=== PATIENT | male | born 1940 | race Caucasian/White ===

== ENCOUNTER → 2023-11-08 13:27 | Outpatient (REF) | payer MEDICARE, OTHER, SELFPAY | LOC: RAD 13:27 | PROVIDERS: ATTENDING PHYSICIAN Podiatrist Foot & Ankle Surgery; FAMILY PHYSICIAN Internal Medicine | DX: I99.8 Other disorder of circulatory system (principal) | CPT/HCPCS: 93922 ==

== ENCOUNTER → 2024-03-24 12:03 | Outpatient (REF) | payer MEDICARE, OTHER, SELFPAY | LOC: DHSLP 12:03 | PROVIDERS: ATTENDING PHYSICIAN Internal Medicine Critical Care Medicine; FAMILY PHYSICIAN Internal Medicine | DX: G47.33 Obstructive sleep apnea (adult) (pediatric) (principal) | CPT/HCPCS: 95800 ==

== ENCOUNTER 2024-04-28 14:17 | Inpatient (IN) | payer MEDICARE, OTHER, SELFPAY ==
[2024-04-28] VITALS (8 sets, daily range): BP systolic 108–140; BP diastolic 63–80; BMI 24.0
--- NOTE | 2024-04-28 11:21 | ED.GENMED ---
Addendum entered and electronically signed by Bebeto Urbina MD 04/28/24 14:06:
EKG read by myself. Ventricular paced rhythm with occasional PVCs. No other abnormalities. No previous EKGs
Monitor paced rhythm at a rate of 74.
Original Note:
History of Present Illness
General
Chief Complaint: Fever
Source: patient and spouse
Exam Limitations: none
Time Seen by Provider: 04/28/24 11:09
History of Present Illness
History of Present Illness:
84-year-old male complaining of cough some headache myalgias. Started 1 to 2 days ago. Initially he thought he might be going into heart failure. However had a positive home COVID test this morning. Mild shortness of breath. Minimal nausea. No
abdominal pain no vomiting no urinary symptoms.
Past History
Past History
ED Past Medical History: Other (amyloidosis, neuropathy)
ED Past Surgical History: Appendectomy, Cardiac (Mitral valve repair/cardiac ablation), Orthopedic and Other (Hernia repair)
Social History
Tobacco: Non-smoker
Drug: None
Personal:
Living: with family
Phy Exam
Physical Exam
Physical Exam:
GENERAL: Alert and oriented in no apparent distress
EYE: Orbits normal.
NECK: Supple
CARDIAC: Regular rate and rhythm without any obvious murmurs. Pacemaker left upper chest wall
LUNGS: No respiratory distress. Occasional slightly coarse cough. No wheezing or rhonchi
ABDOMEN: Soft, without focal tenderness or distention
NEUROLOGICAL: Alert and oriented , grossly non-focal
SKIN: Warm and dry, no rash or lesion, no discoloration, skin intact.
MUSCULOSKELETAL: No edema,no deformity.Good color
PSYCH: Normal and appropriate interaction.
Course
Orders/Labs/Results
Orders:
Orders
04/28/24 11:20
Electrocardiogram (*1) Stat
Reason for Study: Other
Other Reason for Exam: pneumonia
Cardiac Monitoring- Treatment ONCE
EKG- Treatment ONCE
IV Insert/Care/Rem.- Treatment PRN
CR Chest Portable - 1 View Urgent
Comment:
Reason For Exam: Cough/positive COVID
Reason Study Needs to be Portable: Other
Pulse Ox/cont/shift [RESP] Stat
Quantity: 1
04/28/24 11:46
Basic Metabolic Panel Urgent
COVID-19 Antigen Urgent
Source: Nasal Swab
Complete Blood Count/With Diff Urgent
NT-proBNP Urgent
Comment: ADD ON
04/28/24 12:06
Add On- LAB Urgent
Tests Added?: probnp
Abnormal Lab Results
04/28/24
11:46
WBC 12.0 H 10^3/uL
(4.8-10.8)
MCHC 32.8 L g/dL
(33.0-37.0)
RDW 15.9 H %
(11.5-14.5)
Plt Count 102 L 10^3/uL
(130-400)
MPV 10.8 H fL
(7.4-10.4)
Absolute Neuts (auto) 10.2 H 10^3/uL
(1.4-6.5)
Absolute Lymphs (auto) 0.6 L 10^3/uL
(1.2-3.4)
Absolute Monos (auto) 1.1 H 10^3/uL
(0.1-0.6)
Neutrophils % 85.4 H %
(42.2-75.2)
Lymphocytes % 4.7 L %
(20.5-51.1)
BUN 22 H mg/dl
(9-20)
Glucose 110 H mg/dl
(70-99)
SARS-CoV-2 Antigen Positive A
(Negative)
04/28/24 11:46
04/28/24 11:46
Vital Signs
Initial and Last Documented VS:
Initial Vital Signs
Temp Pulse Resp BP Pulse Ox
100.8 F H 83 18 121/71 92
04/28/24 10:48 04/28/24 10:48 04/28/24 10:48 04/28/24 10:48 04/28/24 10:48
Last Documented Vital Signs
Temp Pulse Resp BP Pulse Ox
99.8 F 71 23 108/74 96
04/28/24 12:00 04/28/24 13:00 04/28/24 13:00 04/28/24 13:00 04/28/24 13:07
MDM/Problems Addressed
Differential Diagnosis Includes:
Patient with cough congestion low-grade fever positive COVID test at home. Likely all related to COVID. Evaluation will include labs chest x-ray and EKG. Ultimately management will be decision on antivirals. Patient did not tolerate Paxlovid
last year due to diarrhea. Patient has had previous COVID vaccines except for the most recent 1
*Critical Care Note
Total Time (30-74mins, 75-104mins- exclusive of procedures): Not Applicable
ED Attending Note
-
Portions of this chart may have been created with voice recognition software.� Occasional wrong word or��sound alike� substitutions may have occurred due to the inherent limitations of voice recognition software.
Discharge Plan
Departure
Patient Disposition: Admit
Date of Disposition: 04/28/24
Time of Disposition: 13:18
Presentation/result/management discussed w/ accepting MD/DO: Hospitalist
Discharge Problem:
COVID-19, Pneumonitis/hypoxia, Amyloid cardiac disease
Referrals:
UNKNOWN,NO INTERVIEW [Unknown Provider] -
Interventions
Interventions:
*Risk Screen - Suicide Last Done: 04/28/24 10:48
*General Assessment Last Done: 04/28/24 10:48
*Neglect/Abuse Screening Last Done: 04/28/24 10:48
ED- Fall Risk Assessment Last Done: 04/28/24 11:43
*ED COVID-19 Vaccine History Last Done: 04/28/24 10:52
ED- Neurological Assessment Last Done: 04/28/24 11:50
ED-Skin Assessment Last Done: 04/28/24 11:50
Discharge Date and Time
Print Language: CITIZ[place]
--- NOTE | 2024-04-28 12:00 | EDRN ---
POX 90-92% on RA at this time. Dr. Urbina said to hold on oxygen. Pt also has a PM and Dr. Urbina said interrogation not necessary at this time.
--- NOTE | 2024-04-28 12:11 | EDRN ---
Pulse ox dropped t0 88-90% w/ oxygen started at 2lpm via NC per Dr. Urbina at this time.
[2024-04-28 12:15] LABS: COVID-19 Antigen Positive (Negative)
--- NOTE | 2024-04-28 12:16 | EDRN ---
Pulse ox was 87-89% at this time so oxygen w/ increased to 3lpm although pt was not breathing through his nose. Pt reminded to breathe through his nose to get the oxygen.
[2024-04-28 12:18] LABS: % Basophils 0.5 % (0-2); % Eosinophils 0.1 % (0-6); % Immature Granulocytes 0.3 % (0-0.5); % Lymphocytes 4.7 % (20.5-51.1); % Neutrophils 85.4 % (42.2-75.2); Absolute Basophils 0.1 10^3/uL (0-0.2); Absolute Lymphocytes 0.6 10^3/uL (1.2-3.4); Absolute Monocytes 1.1 10^3/uL (0.1-0.6); Absolute Neutrophils 10.2 10^3/uL (1.4-6.5); Blood Urea Nitrogen 22 mg/dl (9-20); Calcium 9.1 mg/dl (8.4-10.2); Carbon Dioxide 28 mmol/L (22-30); Chloride 99 mmol/L (98-107); Glucose 110 mg/dl (70-99); Hematocrit 44.5 % (39.0-52.0); Hemoglobin 14.6 g/dL (13.0-18.0); Mean Corp Hgb Conc. 32.8 g/dL (33.0-37.0); Mean Corpuscular Volume 91.6 fL (80.0-94.0); Mean Platelet Volume 10.8 fL (7.4-10.4); Nucleated Red Blood Cells % 0 % (-); Platelet Count 102 10^3/uL (130-400); Potassium 4.4 mmol/L (3.5-5.1); Red Blood Cell Count 4.86 10^6/uL (4.70-6.10); Red Cell Dist. Width 15.9 % (11.5-14.5); Sodium 137 mmol/L (135-145); eGFR > 60.00
[2024-04-28 12:33] LABS: NT-proBNP 1710 pg/ml
--- NOTE | 2024-04-28 13:36 | HPS.HSE ---
Addendum entered and electronically signed by Dwayne Kirkpatrick MD 04/28/24 14:19:
84-year-old male with past medical history of permanent atrial fibrillation on Eliquis, cardiac amyloidosis, CHF, and hypertension presents with 2 days of shortness of breath, cough, fever, congestion, and myalgias. Patient is COVID-positive. He
denies sick contacts. He is vaccinated. He was hypoxic in the ER, satting 89% on room air. He is now satting 96% on 2 L.
Will treat with IV dexamethasone, molnupiravir, supportive care.
Check procalcitonin in the a.m., CRP, ferritin, c/s PT/OT.
I have personally seen and examined the patient, and agree with the plan of care as documented by SONG Fischer.
Advance care planning discussed, patient is a full code.
All other issues as outlined by the advanced care practitioner.
Total time spent to see the patient on the floor, examine the patient, review data and lab results, discuss treatment plan with patient, nursing staff around 76 minutes.
Original Note:
Family Physician
-
Family Physician: Bulmaro Espinosa
Chief Complaint
-
cough
congestion
fever
History of Present Illness
84-year-old with past medical history for cardiac amyloid, neuropathy presented to us with nonproductive cough, congestion, fever, generalized achiness for past 2 days. Patient had a fever of 100.2 at home yesterday. He was bedridden yesterday due
to generalized body achiness. Patient stated short of breath, which is worse with exertion. He was positive for COVID this morning. Patient complaining of headache, denied any dizziness or syncopal episode. Denied chest pain. Patient denied
abdominal pain, nausea, vomiting, diarrhea. Patient denies dysuria hematuria.
Tested positive for COVID-19 in the ER. Patient also requiring supplemental oxygen. Admitting for further management
Medical History
Past Medical History
Past Medical History: Reports Other
Additional Past Medical History:
Chronic heart failure
Cardiac amyloidosis
Permanent A-fib
Hypertension
Past Surgical History: Reports Other
Additional Past Surgical History:
Cardiac ablation
Cardiac pacemaker
history of mitral valve repair
Social History
Tobacco: Former Smoker
Alcohol: None
Drug: None
Personal:
Living: With Family
Family History
Family History: Not pertinent
Allergies / Home Medications
Allergies reflects when Allergies were last updated in [employer].
Home Medications with original date entered in [employer]
Allergy/Medication List:
Allergies
Allergy/AdvReac Type Severity Reaction Status Date / Time
amiodarone Allergy Severe Rash Verified 04/28/24 10:47
Home Medications
acetaminophen 500 mg tablet (Tylenol Extra Strength) 1,000 mg PO Q6HPRN PRN mild pain 04/28/24
apixaban 5 mg tablet (Eliquis) 5 mg PO BID 04/28/24
bumetanide 0.5 mg tablet 0.5 - 1 mg PO DAILY 04/28/24
cetirizine 10 mg tablet (Zyrtec) 10 mg PO DAILY 04/28/24
fluticasone propionate 50 mcg/actuation nasal spray,suspension 2 spray intranasal DAILY 04/28/24
gabapentin 300 mg capsule 600 mg PO HS 04/28/24
lorazepam 1 mg tablet 1 mg PO Q6HPRN PRN anxiety 04/28/24
pantoprazole 40 mg tablet,delayed release 40 mg PO DAILY 04/28/24
tafamidis 61 mg capsule (Vyndamax) 61 mg PO HS 04/28/24
Review of Systems
-
Constitutional: Reports No Symptoms, Fatigue and Chills
EENT: Reports Runny Nose
Respiratory: Reports Cough and Trouble Breathing
Cardiac: Reports No Symptoms
Abdomen/GI: Reports No Symptoms
: Reports No Symptoms
Musculoskeletal: Reports No Symptoms
Skin: Reports No Symptoms
Neurological: Reports No Symptoms
Endocrine: Reports No Symptoms
Hematologic/Lymphatic: Reports No Symptoms
Psych: Reports No Symptoms
Physical Exam
Vital Signs
Vital Signs
Temp Pulse Resp BP Pulse Ox
99.8 F 71 23 108/74 96
04/28/24 12:00 04/28/24 13:00 04/28/24 13:00 04/28/24 13:00 04/28/24 13:07
Physical Exam
General: Well Developed, Well Nourished and No Apparent Distress
HEENT: NormoCephalic, Moist mucous membranes and Atraumatic
Respiratory: Clear
Cardiac: S1/S2 and Regular Rhythm; No Murmur or Rub
GI: Soft, Non Tender, Non Distended and Normal Bowel Sounds; No Organomegaly
Rectal: Deferred by Provider
Musculoskeletal: No Clubbing, No Cyanosis and No Edema
Skin: No Rash
Neuro: AO x 3 and Nonfocal/grossly intact
Psych: Calm
Laboratory Results
-
04/28/24 11:46
04/28/24 11:46
Data Reviewed
-
Diagnostic Radiology: Report Reviewed by me
Lab Data: Labs Reviewed by me
Impression/Plan
-
# Acute respiratory failure likely from COVID-19 infection
-Continue supplemental oxygen to keep sat greater than 92
-wbc 12.0
-Wean as tolerated to her
-IV Decadron and Molnupiravir as per pharmacy dosing
-Albuterol as needed for short of breath
-Tessalon as needed for cough
-Mucinex for cough
-Encourage incentive spirometer and ambulation
-Chest x-ray with impression of Nonspecific diffusely increased interstitial markings bilaterally. Findings could be chronic in nature, with interstitial edema or diffuse atypical or viral pneumonia within the differential.Moderate elevation of the
right hemidiaphragm with compressive atelectasis along the right lung base.
-obtain procal, ferritin, CRP, in AM
-monitor LFT in am
# Permanent atrial fib
-EKG with ventricular paced rhythm with occasional PVCs
-Eliquis continued
# History of CHF
-Patient not in acute exacerbation
-Bumex 1 mg continued
-Strict LOTTIE, daily weight
# Neuropathy
-Gabapentin continued
# Anxiety
-Lorazepam continued
# GERD
-PPI continued
# History of cardiac amyloid
-Tafamidis from home continued
#dvt prophylaxis
-on eliquis
#CODE status
-full code
--- NOTE | 2024-04-28 14:05 | EDRN ---
Pharmacy called about Molupinavir order at this time.
[2024-04-28] MEDS: DECADRON 6 MG IV (14:10)
--- NOTE | 2024-04-28 14:19 | EDRN ---
Pt administered a boxed lunch at this time.
[2024-04-28] MEDS: MOLNUPIRAVIR (EUA) 800 MG PO (14:29)
[2024-04-28] MEDS: MUCINEX 600 MG PO (20:58)
[2024-04-28] MEDS: ELIQUIS 5 MG PO (20:58)
[2024-04-28] MEDS: NEURONTIN 600 MG PO (20:59)
[2024-04-28] MEDS: NON-FORMULARY ITEM 61 MG PO (20:59)
[2024-04-29] MEDS: MOLNUPIRAVIR (EUA) 800 MG PO ×2 (00:07→09:23)
[2024-04-29 03:05] VITALS: BP 142/91; BMI 23.8
[2024-04-29 06:00] VITALS: BMI 23.8
[2024-04-29 07:30] VITALS: BP 129/85
[2024-04-29 08:54] LABS: % Basophils 0.1 % (0-2); % Immature Granulocytes 0.5 % (0-0.5); % Lymphocytes 6.7 % (20.5-51.1); % Monocytes 12.6 % (1.7-9.3); % Neutrophils 80.1 % (42.2-75.2); Absolute Lymphocytes 0.6 10^3/uL (1.2-3.4); Absolute Neutrophils 6.6 10^3/uL (1.4-6.5); Hematocrit 45.3 % (39.0-52.0); Hemoglobin 14.8 g/dL (13.0-18.0); Mean Corp Hgb Conc. 32.7 g/dL (33.0-37.0); Mean Corpuscular Hgb 30.4 pg (27.0-31.0); Mean Platelet Volume 12.1 fL (7.4-10.4); Nucleated Red Blood Cells % 0 % (-); Platelet Count 92 10^3/uL (130-400); Red Blood Cell Count 4.87 10^6/uL (4.70-6.10); Red Cell Dist. Width 15.9 % (11.5-14.5); White Blood Cell Count 8.2 10^3/uL (4.8-10.8)
[2024-04-29] MEDS: PROTONIX 40 MG PO (09:22)
[2024-04-29] MEDS: BUMEX 1 MG PO (09:22)
[2024-04-29] MEDS: MUCINEX 600 MG PO ×2 (09:22→20:38)
[2024-04-29] MEDS: DECADRON 6 MG IV (09:23)
[2024-04-29] MEDS: ELIQUIS 5 MG PO ×2 (09:24→20:38)
[2024-04-29] MEDS: ZYRTEC 10 MG PO (09:24)
[2024-04-29] MEDS: FLUSH (NSS) 2 FLUSH IV (09:26)
[2024-04-29 10:35] LABS: ALT (SGPT) 13 U/L (0-50); AST (SGOT) 29 U/L (17-59); Albumin 4.2 g/dl (3.5-5.0); Alkaline Phosphatase 91 U/L (38-126); Blood Urea Nitrogen 26 mg/dl (9-20); Calcium 9.2 mg/dl (8.4-10.2); Carbon Dioxide 25 mmol/L (22-30); Chloride 100 mmol/L (98-107); Estimated Creatinine Clearance 72 ml/min; Glucose 118 mg/dl (70-99); Potassium 4.4 mmol/L (3.5-5.1); Sodium 137 mmol/L (135-145); Total Bilirubin 1.8 mg/dl (0.2-1.3); Total Protein 7.2 g/dl (6.3-8.2); eGFR > 60.00
[2024-04-29 10:51] LABS: Procalcitonin < 0.05 ng/ml (0.0-0.25)
[2024-04-29 11:15] VITALS: BP 129/86
--- NOTE | 2024-04-29 13:31 | W.PN.HOSP.TC ---
Today's Communication/Plan
-
Possible discharge tomorrow if continued improvement
Assessment / Plan
Assessment / Plan
HPI: 84-year-old male with past medical history of permanent atrial fibrillation on Eliquis, cardiac amyloidosis, CHF, and hypertension presents with 2 days of shortness of breath, cough, fever, congestion, and myalgias. Patient is COVID-positive.
He denies sick contacts. He is vaccinated. He was hypoxic in the ER, satting 89% on room air. He is now satting 96% on 2 L.
#Acute hypoxic respiratory insufficiency (failure ruled out)
#Acute coronavirus pneumonia
Fully vaccinated. Procalcitonin negative.
Patient symptomatic on 04/26, isolate for 10 days
Initially requiring 2 L of oxygen, now on room air
He has received 2 doses of IV dexamethasone, will discontinue
Continue Molnupiravir D2
#Weakness
PT/OT
# Permanent atrial fib
-EKG with ventricular paced rhythm with occasional PVCs
-Eliquis continued
# History of CHF
-Patient not in acute exacerbation
-Bumex 1 mg continued
# Neuropathy
-Gabapentin continued
# Anxiety
-Lorazepam continued
# GERD
-PPI continued
# History of cardiac amyloid
-Tafamidis from home continued
DVT prophylaxis�Eliquis
Full Code
Total time spent to see the patient on the floor, examine the patient, review data and lab results, discuss treatment plan with patient, nursing staff around 51 minutes.
Physical Exam
General: No acute distress
HEENT: Normocephalic, Atraumatic, EOMI, MMM
Respiratory: Coarse breath sounds
Cardiac: Normal S1/S2, Regular Rate and Rhythm
GI: Soft, Nontender, Nondistended, Normal Bowel Sounds
Extremities: No Clubbing, Cyanosis, or Edema
Neuro: Nonfocal/Grossly Intact
Psych: Calm, Cooperative
Derm: No Visible lesions
Anticipated Discharge: Within 24 hours
Subjective/Interval History
-
Date of Service: April 29, 2024
Patient reports feeling better. Shortness of breath improved, cough improved. He is off of oxygen. Fever resolved. No vomiting.
Objective Data
-
Labs:
Laboratory Results
04/29/24
07:55
WBC 8.2
Hgb 14.8
Hct 45.3
Plt Count 92 L
Sodium 137
Potassium 4.4
Chloride 100
Carbon Dioxide 25
BUN 26 H
Creatinine 0.9
Glucose 118 H
Calcium 9.2
Total Bilirubin 1.8 H
AST 29
ALT 13
Alkaline Phosphatase 91
Vital Signs:
Vital Signs
Temp Pulse Resp BP Pulse Ox
97.5 F 71 18 129/86 96
04/29/24 11:15 04/29/24 11:15 04/29/24 11:15 04/29/24 11:15 04/29/24 11:15
I&O
04/28/24 04/29/24 04/30/24
06:59 06:59 06:59
Intake Total 720 / 720
Balance 720 / 720
--- NOTE | 2024-04-29 14:56 | CM ---
CM spoke with pt's spouse on phone.
Pt resides in a 1SH/condo with 0 CASS.
Prior to admission uses no AD for ambulation. Ind with ADL's. + [employer]. No DME.
HC history years ago after hip/knee replacements. No SNF history.
Pt currently on 2L NC, not on home oxygen.
reports now having a cough but tested negative this AM for Covid.
PCP: Bulmaro Espinosa
Pharmacy: [facility]
Discharge dispo home no needs pending oxygen wean.
[2024-04-29 15:35] VITALS: BP 111/70
--- NOTE | 2024-04-29 16:34 | W.PN.HOSP.TC ---
Today's Communication/Plan
-
Discharge home with home care today
Assessment / Plan
Assessment / Plan
HPI: 84-year-old male with past medical history of permanent atrial fibrillation on Eliquis, cardiac amyloidosis, CHF, and hypertension presents with 2 days of shortness of breath, cough, fever, congestion, and myalgias. Patient is COVID-positive.
He denies sick contacts. He is vaccinated. He was hypoxic in the ER, satting 89% on room air. He is now satting 96% on 2 L.
#Acute hypoxic respiratory insufficiency (failure ruled out)
#Acute coronavirus pneumonia
Fully vaccinated. Procalcitonin negative.
Patient symptomatic on 04/26, isolate for 10 days
Initially requiring 2 L of oxygen, now on room air
Status post 2 doses of IV dexamethasone, discontinued since he has been on room air since 04/29
Status post molnupiravir for 2 days, discontinued due to complaints of diarrhea
Feeling better, stable for discharge home with home care
Needs to isolate through 05/05/2024, follow-up with PCP in 1 week
#Weakness
PT/OT- rec HH
# Permanent atrial fib
-EKG with ventricular paced rhythm with occasional PVCs
-Eliquis continued
# History of CHF
-Patient not in acute exacerbation
-Bumex 1 mg continued
# Neuropathy
-Gabapentin continued
# Anxiety
-Lorazepam continued
# GERD
-PPI continued
# History of cardiac amyloid
-Tafamidis from home continued
DVT prophylaxis�Eliquis
Full Code
Updated on phone 04/30
Physical Exam
General: No acute distress
HEENT: Normocephalic, Atraumatic, EOMI, MMM
Respiratory: Coarse breath sounds
Cardiac: Normal S1/S2, Regular Rate and Rhythm
GI: Soft, Nontender, Nondistended, Normal Bowel Sounds
Extremities: No Clubbing, Cyanosis, or Edema
Neuro: Nonfocal/Grossly Intact
Psych: Calm, Cooperative
Derm: No Visible lesions
Anticipated Discharge: Today
Subjective/Interval History
-
Date of Service: April 29, 2024
Patient reports feeling slightly better. Cough and fever resolved. Shortness of breath resolved. He reports sneezing. Had diarrhea yesterday, now resolved.
Objective Data
-
Labs:
Laboratory Results
04/29/24
07:55
WBC 8.2
Hgb 14.8
Hct 45.3
Plt Count 92 L
Sodium 137
Potassium 4.4
Chloride 100
Carbon Dioxide 25
BUN 26 H
Creatinine 0.9
Glucose 118 H
Calcium 9.2
Total Bilirubin 1.8 H
AST 29
ALT 13
Alkaline Phosphatase 91
Vital Signs:
Vital Signs
Temp Pulse Resp BP Pulse Ox
97.5 F 71 18 129/86 96
04/29/24 11:15 04/29/24 11:15 04/29/24 11:15 04/29/24 11:15 04/29/24 11:15
I&O
04/28/24 04/29/24 04/30/24
06:59 06:59 06:59
Intake Total 720 / 720
Balance 720 / 720
[2024-04-29 19:14] VITALS: BP 109/72
--- NOTE | 2024-04-29 21:47 | W.PN.UPDATE ---
Update Note
Progress Note Update
RN notified METAL MELTER, patient complained he had diarrhea x5 whole day and strongly believes its due to molnupiravir. States he had Paxlovid in the past and caused diarrhea and had to stop the dose, Also reports Diarrhea is causing his hemorrhoids to bleed
a little and is very sore. Per nurse patient vitals are stable and to be discharged tomorrow. Addressed the importance of finishing the antiviral course, given the age and condition, will stop the molnupiravir.
[2024-04-29] MEDS: MOLNUPIRAVIR (EUA) PO (21:54)
[2024-04-29] MEDS: NON-FORMULARY ITEM 61 MG PO (21:56)
[2024-04-29] MEDS: NEURONTIN 600 MG PO (21:56)
[2024-04-29 23:59] VITALS: BP 115/74
[2024-04-30 03:10] VITALS: BP 116/76
[2024-04-30 06:00] VITALS: BMI 23.4
[2024-04-30 07:35] VITALS: BP 127/64
[2024-04-30] MEDS: BUMEX 1 MG PO (09:00)
[2024-04-30] MEDS: ELIQUIS 5 MG PO (09:00)
[2024-04-30] MEDS: PROTONIX 40 MG PO (09:00)
[2024-04-30] MEDS: ZYRTEC 10 MG PO (09:00)
[2024-04-30] MEDS: MUCINEX 600 MG PO (09:00)
--- NOTE | 2024-04-30 10:14 | W.DCSUMMARY ---
Discharge Summary
Discharge Data
Date of Admission: 04/28/24
Date of Discharge: 04/30/24
-
Pending Results: No
Hospital Course
Discharge diagnosis:
Acute hypoxic respiratory insufficiency
Acute coronavirus pneumonia
Diarrhea
Weakness
Permanent atrial fibrillation
Chronic congestive heart failure
Neuropathy
Anxiety
Gastroesophageal reflux disease
History of cardiac amyloid
Chest x-ray:
Nonspecific diffusely increased interstitial markings bilaterally. Findings could be chronic in nature, with interstitial edema or diffuse atypical or viral pneumonia within the differential.
Moderate elevation of the right hemidiaphragm with compressive atelectasis along the right lung base.
Hospital course:
84-year-old male with a past medical history of permanent atrial fibrillation on Eliquis, cardiac amyloidosis, CHF, and hypertension was admitted for acute hypoxic respiratory insufficiency secondary to acute coronavirus pneumonia. He is fully
vaccinated. Patient required 2 L of oxygen. He was treated with IV dexamethasone. He had diarrhea in the past in response to the Paxlovid and is on Eliquis, therefore he was not started on Paxlovid. He was started on molnupiravir instead.
By the following hospital day, his hypoxia resolved. His dexamethasone was discontinued. Patient started feeling better. His shortness of breath resolved, cough improved. He started having diarrhea, and requested to discontinue his molnupiravir.
Patient was seen in conjunction with PT, who recommended home care. He is medically stable for discharge home with home care. He needs to isolate through 05/05/2024. He also needs to follow-up with his primary care doctor in 1-2 weeks.
Disposition: Home with home care
Discharge planning: Required 36
Discharge Plan
-
Patient Disposition: Home with Home Care
Discharge Diagnosis/Procedures: Transient hypoxia, acute coronavirus pneumonia, diarrhea, cardiac amyloid, permanent atrial fibrillation on Eliquis
Condition: Fair
Diet: Low Fat and Low Cholesterol
Activity: As tolerated
Activity Restrictions/Additional Instructions:
Please isolate through 05/05/24.
Follow-up with your primary care doctor in 1 week.
Referrals:
Bulmaro Espinosa MD [Family Provider] - in one week
Prescriptions:
New
guaifenesin 600 mg Tablet Extended Release 12hr
600 mg PO Q12 7 Days Qty: 14 0RF
Continued
cetirizine [Zyrtec] 10 mg Tablet
10 mg PO DAILY
acetaminophen [Tylenol Extra Strength] 500 mg Tablet
1,000 mg PO Q6HPRN PRN (Reason: mild pain)
pantoprazole 40 mg Tablet,Delayed Release (Dr/Ec)
40 mg PO DAILY
bumetanide 0.5 mg Tablet
0.5 - 1 mg PO DAILY
Patient Comments:
04/28/24: Change dosage depending on body weight
gabapentin 300 mg Capsule
600 mg PO HS
lorazepam 1 mg Tablet
1 mg PO Q6HPRN PRN (Reason: anxiety)
fluticasone propionate 50 mcg/actuation Lamar,Suspension
2 spray INTRANASAL DAILY
Eliquis 5 mg Tablet
5 mg PO BID
Vyndamax 61 mg Capsule
61 mg PO HS
Discharge Orders:
Discharge Patient (As Directed); Ordered 04/30/24
Ordered By: Dwayne Kirkpatrick
Discharge Date and Time
Discharge Date/Time: 04/30/24 12:24
Print Language: LATVIAN
--- NOTE | 2024-04-30 10:50 | CM ---
Addendum entered by Leda Miramontes RN 04/30/24 11:04:
[facility] accepted in [facility].
Original Note:
Patient who is Covid + with Dx Acute hypoxic respiratory insufficiency, Acute coronavirus pneumonia. Room air. PT recommends HH.
Spoke with patient and ; both agree to d/c today. IMM completed with and copy sent to her email at [email or web address]. Patient and agreed to [facility] for SN/PT. says she is feeling unwell today and son will help patient at
home. Patient's son Harpal will provide transport home today.
Referral to [facility]- left phone message indicating d/c today.
Plan home today with [facility].
[2024-04-30 11:20] VITALS: BP 118/75
== END 2024-04-30 12:24 | disposition home health service (06) | DRG 177 ==
LOC: 2 NORTH 14:17
PROVIDERS: Registered Nurse; ADMITTING PHYSICIAN Family Medicine; EMERGENCY PHYSICIAN Emergency Medicine; FAMILY PHYSICIAN Internal Medicine
PROC: 3E0333Z Introduction of Anti-inflammatory into Peripheral Vein, Percutaneous Approach (ICD-10-PCS; 2024-04-28)
PROC: 3E0DXGC Introduction of Other Therapeutic Substance into Mouth and Pharynx, External Approach (ICD-10-PCS; 2024-04-28)
DX: U07.1 COVID-19 (principal); J12.82 Pneumonia due to coronavirus disease 2019; E85.4 Organ-limited amyloidosis; I48.21 Permanent atrial fibrillation; K52.1 Toxic gastroenteritis and colitis; J98.11 Atelectasis; I11.0 Hypertensive heart disease with heart failure; I50.9 Heart failure, unspecified; G62.9 Polyneuropathy, unspecified; R06.89 Other abnormalities of breathing; R09.02 Hypoxemia; K21.9 Gastro-esophageal reflux disease without esophagitis; T37.5X5A Adverse effect of antiviral drugs, initial encounter; K64.9 Unspecified hemorrhoids; F41.9 Anxiety disorder, unspecified; Z88.8 Allergy status to other drugs, medicaments and biological substances; Z79.01 Long term (current) use of anticoagulants; Z95.0 Presence of cardiac pacemaker; Z87.891 Personal history of nicotine dependence
CPT/HCPCS: 71045; 80048; 80053; 82728; 83735; 83880; 84145; 85025; 86140; 87811; 93005; 97162; 99285

== ENCOUNTER → 2024-11-14 12:25 | Outpatient (REF) | payer MEDICARE, OTHER, SELFPAY | LOC: WOUND 12:25 | PROVIDERS: ATTENDING PHYSICIAN Surgery; FAMILY PHYSICIAN Internal Medicine | DX: L97.511 Non-pressure chronic ulcer of other part of right foot limited to breakdown of skin (principal); I48.21 Permanent atrial fibrillation; E85.82 Wild-type transthyretin-related (ATTR) amyloidosis; I43 Cardiomyopathy in diseases classified elsewhere; Z79.01 Long term (current) use of anticoagulants | CPT/HCPCS: 99203 ==

== ENCOUNTER → 2025-05-16 13:50 | Outpatient (REF) | payer MEDICARE, OTHER, SELFPAY | LOC: DHVS 13:50 | PROVIDERS: ATTENDING PHYSICIAN Physician Assistant; FAMILY PHYSICIAN Internal Medicine | DX: I99.8 Other disorder of circulatory system (principal) | CPT/HCPCS: 93922; 93925 ==